=== PATIENT | female | born 1940 | race Caucasian/White ===

== ENCOUNTER → 2017-08-06 08:58 | Outpatient (CLI) | payer MEDICARE, BC, SELFPAY ==
--- NOTE | 2017-08-06 | DI.US.S_ITS ---
PROCEDURE: US CAROTID DOPPLER BI INDICATIONS: BILATERAL CAROTID ARTERY DISEASE TECHNIQUE: Color and pulse Doppler interrogation was performed of both carotid systems, with image documentation and velocity measurements. COMPARISON: [facility], , CAROTID ARTERY DOPPLER [facility], 08/22/2016, 10:36. FINDINGS: Stenosis calculations are based on SRU (Society of Radiologists in Ultrasound) criteria. Right side: Brachial blood pressure: 161/64 mm Hg. Common carotid artery peak systolic velocity: 87 cm/sec. Internal carotid artery peak systolic velocity: 202 cm/sec. Internal carotid artery end diastolic velocity: 40 cm/sec. External carotid artery peak systolic velocity: 202 cm/sec. ICA/CCA peak systolic ratio: 2.31. Pereira scale imaging description: The dense atheromatous plaque is present at the carotid bifurcation. Percent internal carotid artery stenosis: 50-69% stenosis. Vertebral artery: Flow direction is antegrade. Left side: Brachial blood pressure: Not obtained Common carotid artery peak systolic velocity: 89 cm/sec. Internal carotid artery peak systolic velocity: 132 cm/sec. Internal carotid artery end diastolic velocity: 31 cm/sec. External carotid artery peak systolic velocity: 407 cm/sec. ICA/CCA peak systolic ratio: 1.48. Pereira scale imaging description: Dense atheromatous plaque is present at the carotid bifurcation. Percent internal carotid artery stenosis: 50-69% stenosis. Vertebral artery: Flow direction is antegrade. IMPRESSION: 1. 50-69% stenosis of the bilateral internal carotid arteries. These findings are similar to the study dated 08/22/16. 2. Increased velocity within the left external carotid artery suggesting high-grade stenosis. Dictated by: Asia Bruce M.D. on 08/06/2017 at 10:39 Approved by: Asia Bruce M.D. on 08/06/2017 at 10:41
== END ==
PROVIDERS: PCP Family Medicine; Visit Provider Internal Medicine Cardiovascular Disease
DX: I65.23 Occlusion and stenosis of bilateral carotid arteries (principal)
CPT/HCPCS: 93880

== ENCOUNTER → 2017-12-10 10:45 | Outpatient (CLI) | payer MEDICARE, BC, SELFPAY ==
--- NOTE | 2017-12-10 | DI.MG.S_ITS ---
BILATERAL DIGITAL SCREENING MAMMOGRAM 3D/2D WITH CAD POST LUMPECTOMY: 12/10/2017 CLINICAL: Routine screening. Family history of breast cancer. Personal history of breast cancer. Comparison is made to exams dated: 11/27/2016 mammogram, 11/25/2015 mammogram, and 11/23/2014 mammogram - [facility]. The tissue of both breasts is heterogeneously dense. This may lower the sensitivity of mammography. Current study was also evaluated with a Computer Aided Detection (CAD) system. There are a grouped calcifications in the right breast at 6 o'clock posterior depth. No other significant masses, calcifications, or other findings are seen in either breast. IMPRESSION: INCOMPLETE: NEEDS ADDITIONAL IMAGING EVALUATION The grouped calcifications in the right breast are indeterminate. Spot magnification views are recommended. This exam was interpreted at Station ID: [id number]. NOTE: For mammograms, a report in lay terms will be sent to the patient. Approximately 15% of breast malignancies will not be visualized mammographically. In the management of a palpable breast mass, a negative mammogram must not discourage biopsy of a clinically suspicious lesion. Electronically Signed By: Asia westfall/pati:12/10/2017 12:09:32 letter sent: Additional Imaging Needed ACR BI-RADS Category 0: Incomplete 3340F
== END ==
PROVIDERS: PCP Family Medicine; Visit Provider Family Medicine
DX: Z12.31 Encounter for screening mammogram for malignant neoplasm of breast (principal); Z85.3 Personal history of malignant neoplasm of breast; Z80.3 Family history of malignant neoplasm of breast
CPT/HCPCS: 77063; 77067

== ENCOUNTER → 2018-01-07 12:22 | Outpatient (CLI) | payer MEDICARE, BC, SELFPAY ==
--- NOTE | 2018-01-07 | DI.MG.S_ITS ---
UNILATERAL RIGHT DIGITAL DIAGNOSTIC MAMMOGRAM 3D/2D WITH ADDITIONAL VIEWS: 01/07/2018 CLINICAL: Additional evaluation requested from prior study. Comparison is made to exams dated: 12/10/2017 mammogram, 11/27/2016 mammogram, and 11/25/2015 mammogram - [facility]. The tissue of right breast is heterogeneously dense. This may lower the sensitivity of mammography. There are grouped amorphous calcifications in the right breast at 6 o'clock posterior depth which appear stable compared to prior studies on additional magnification views. These are not significantly changed. No other significant masses or calcifications are seen in the breast. IMPRESSION: There is no mammographic evidence of malignancy. A 1 year screening mammogram is recommended. This exam was interpreted at Station ID: [id number]. NOTE: For mammograms, a report in lay terms will be sent to the patient. Approximately 15% of breast malignancies will not be visualized mammographically. In the management of a palpable breast mass, a negative mammogram must not discourage biopsy of a clinically suspicious lesion. Electronically Signed By: Wale beckford/:01/07/2018 13:32:22 letter sent: Normal Exam ACR BI-RADS Category 2: Benign Finding(s) 3342F
== END ==
PROVIDERS: PCP Family Medicine; Visit Provider Family Medicine
DX: R92.8 Other abnormal and inconclusive findings on diagnostic imaging of breast (principal)
CPT/HCPCS: 77065; G0279

== ENCOUNTER → 2018-07-15 09:52 | Outpatient (CLI) | payer MEDICARE, BC, SELFPAY ==
--- NOTE | 2018-07-15 | DI.US.S_ITS ---
PROCEDURE: US CAROTID DOPPLER BI INDICATIONS: ESSENTIAL HYPERTENSION TECHNIQUE: Color and pulse Doppler interrogation was performed of both carotid systems, with image documentation and velocity measurements. COMPARISON: [facility], [place], US CAROTID DOPPLER BI, 08/06/2017, 9:36. FINDINGS: Stenosis calculations are based on SRU (Society of Radiologists in Ultrasound) criteria. Right side: Brachial blood pressure: 152/69 mm Hg. Common carotid artery peak systolic velocity: 65 cm/sec. Internal carotid artery peak systolic velocity: 319 cm/sec. Internal carotid artery end diastolic velocity: 69 cm/sec. External carotid artery peak systolic velocity: 242 cm/sec. ICA/CCA peak systolic ratio: 4.89. Pereira scale imaging description: Densely calcified plaques at the origin of the internal carotid artery Percent internal carotid artery stenosis: 70% stenosis to near occlusion and increased. Vertebral artery: Flow direction is antegrade. Left side: Brachial blood pressure: Not available. Common carotid artery peak systolic velocity: 86 cm/sec. Internal carotid artery peak systolic velocity: 137 cm/sec. Internal carotid artery end diastolic velocity: 31 cm/sec. External carotid artery peak systolic velocity: 251 cm/sec. ICA/CCA peak systolic ratio: 1.95. Pereira scale imaging description: Calcified plaques at the bifurcation Percent internal carotid artery stenosis: 50-69% and unchanged. Vertebral artery: Flow direction is antegrade. IMPRESSION: 1. 70% stenosis to near occlusion of the left internal carotid artery, increased since the last exam. 2. 50-69% right internal carotid stenosis, unchanged. Dictated by: Rhiannon Meade M.D. on 07/15/2018 at 17:13 Approved by: Rhiannon Meade M.D. on 07/15/2018 at 17:17
== END ==
PROVIDERS: PCP Family Medicine; Visit Provider Internal Medicine Cardiovascular Disease
DX: I65.23 Occlusion and stenosis of bilateral carotid arteries (principal); I10 Essential (primary) hypertension
CPT/HCPCS: 93880

== ENCOUNTER → 2018-12-11 11:41 | Outpatient (CLI) | payer MEDICARE, BC, SELFPAY ==
--- NOTE | 2018-12-11 | DI.MG.S_ITS ---
BILATERAL DIGITAL SCREENING MAMMOGRAM 3D/2D WITH CAD POST LUMPECTOMY: 12/11/2018 CLINICAL: Routine screening. Personal history of breast cancer. Family history of breast cancer. Comparison is made to exams dated: 01/07/2018 mammogram, 12/10/2017 mammogram, 11/27/2016 mammogram, 11/25/2015 mammogram, and 11/23/2014 mammogram - [facility]. The tissue of both breasts is heterogeneously dense. This may lower the sensitivity of mammography. Current study was also evaluated with a Computer Aided Detection (CAD) system. There are benign vascular calcifications in both breasts. There also are benign post operative findings in the left breast. There is a mole marker on the right breast. No significant masses, calcifications, or other findings are seen in either breast. There has been no significant interval change. IMPRESSION: There is no mammographic evidence of malignancy. A 1 year screening mammogram is recommended. This exam was interpreted at Station ID: [id number]. NOTE: For mammograms, a report in lay terms will be sent to the patient. Approximately 15% of breast malignancies will not be visualized mammographically. In the management of a palpable breast mass, a negative mammogram must not discourage biopsy of a clinically suspicious lesion. Electronically Signed By: Danish jacobo/pati:12/14/2018 20:05:32 letter sent: Normal Exam ACR BI-RADS Category 2: Benign Finding(s) 3342F
== END ==
PROVIDERS: PCP Family Medicine; Visit Provider Family Medicine
DX: Z12.31 Encounter for screening mammogram for malignant neoplasm of breast (principal); Z85.3 Personal history of malignant neoplasm of breast; Z80.3 Family history of malignant neoplasm of breast
CPT/HCPCS: 77063; 77067

== ENCOUNTER → 2019-09-23 13:39 | Outpatient (CLI) | payer MEDICARE, BC, SELFPAY ==
--- NOTE | 2019-09-23 | DI.US.S_ITS ---
PROCEDURE: US CAROTID DOPPLER BI INDICATIONS: STENOSIS TECHNIQUE: Color and pulse Doppler interrogation was performed of both carotid systems, with image documentation and velocity measurements. COMPARISON: [facility], CAROTID ARTERY DOPPLER BILAT, 08/22/2016, 10:36. [facility], CAROTID ARTERY DOPPLER BILAT, 12/06/2015, 8:43. [facility], , CAROTID ARTERY DOPPLER BILAT, 12/13/2014, 10:38. [facility], , CAROTID ARTERY DOPPLER BILAT, 06/23/2014, 8:38. [facility], , US CAROTID DOPPLER BI, 07/15/2018, 10:33. [facility], US CAROTID DOPPLER BI, 08/06/2017, 9:36. FINDINGS: Stenosis calculations are based on SRU (Society of Radiologists in Ultrasound) criteria. Right side: Brachial blood pressure: 153/62 mm Hg. Common carotid artery peak systolic velocity: 92 cm/sec (prior 87 cm/s). Internal carotid artery peak systolic velocity: 302 cm/sec (prior 200 to cm/s). Internal carotid artery end diastolic velocity: 88 cm/sec (prior 40 cm/s). External carotid artery peak systolic velocity: 206 cm/sec (prior 202 cm/s). ICA/CCA peak systolic ratio: 3.3 (prior 2.3). Pereira scale imaging description: Moderate atherosclerotic changes are seen. Percent internal carotid artery stenosis: Greater than 70% Vertebral artery: Flow direction is antegrade. Left side: Brachial blood pressure: 123/53 mm Hg. Common carotid artery peak systolic velocity: 103 cm/sec (prior 87 cm/s). Internal carotid artery peak systolic velocity: 107 cm/sec (prior 137 cm/s). Internal carotid artery end diastolic velocity: 29 cm/sec (prior 31 cm/s). External carotid artery peak systolic velocity: 263 cm/sec (prior 251 cm/s). ICA/CCA peak systolic ratio: 1 (prior 1.59). Pereira scale imaging description: Atherosclerotic changes are seen, including shadowing calcification. Percent internal carotid artery stenosis: Less than 50% by velocity criteria Vertebral artery: Flow direction is antegrade. IMPRESSION: There is a greater than 70% stenosis seen involving the right proximal internal carotid artery, which has progressed compared to the prior ultrasound. A vascular surgery consultation is recommended. Less than 50% stenosis involving the left proximal internal carotid artery. By velocity criteria, there are greater than 50% stenoses involving both proximal external carotid arteries. Dictated by: Harry Mera M.D. on 09/23/2019 at 15:28 Approved by: Harry Mera M.D. on 09/23/2019 at 15:31
== END ==
PROVIDERS: PCP Family Medicine; Referring Provider Family Medicine; Visit Provider Family Medicine
DX: I65.23 Occlusion and stenosis of bilateral carotid arteries (principal); M85.851 Other specified disorders of bone density and structure, right thigh; E07.9 Disorder of thyroid, unspecified; E11.9 Type 2 diabetes mellitus without complications; R29.890 Loss of height; Z85.3 Personal history of malignant neoplasm of breast
CPT/HCPCS: 77080; 93880

== ENCOUNTER → 2019-12-17 09:55 | Outpatient (CLI) | payer MEDICARE, BC, SELFPAY ==
--- NOTE | 2019-12-17 | DI.MG.S_ITS ---
BILATERAL DIGITAL SCREENING MAMMOGRAM 3D/2D WITH CAD: 12/17/2019 CLINICAL: Routine screening. Personal history of left breast cancer. Family history of breast cancer. Comparison is made to exams dated: 12/11/2018 mammogram, 12/10/2017 mammogram, 11/27/2016 mammogram, 11/25/2015 mammogram, and 11/23/2014 mammogram - [facility]. The tissue of both breasts is heterogeneously dense. This may lower the sensitivity of mammography. Current study was also evaluated with a Computer Aided Detection (CAD) system. There are benign vascular calcifications in both breasts. There also are benign post operative findings in the left breast. No significant masses, calcifications, or other findings are seen in either breast. There has been no significant interval change. IMPRESSION: BENIGN There is no mammographic evidence of malignancy. A 1 year screening mammogram is recommended. This exam was interpreted at Station ID: [id number]. NOTE: For mammograms, a report in lay terms will be sent to the patient. Approximately 15% of breast malignancies will not be visualized mammographically. In the management of a palpable breast mass, a negative mammogram must not discourage biopsy of a clinically suspicious lesion. Electronically Signed By: Roverto pelaez/pati:12/17/2019 13:07:39 letter sent: Normal Exam ACR BI-RADS Category 2: Benign Finding(s) 3342F
== END ==
PROVIDERS: PCP Family Medicine; Referring Provider Family Medicine; Visit Provider Family Medicine
DX: Z12.31 Encounter for screening mammogram for malignant neoplasm of breast (principal); Z85.3 Personal history of malignant neoplasm of breast; Z80.3 Family history of malignant neoplasm of breast
CPT/HCPCS: 77063; 77067

== ENCOUNTER → 2020-09-27 10:17 | Outpatient (CLI) | payer MEDICARE, BC, SELFPAY ==
--- NOTE | 2020-09-27 | DI.US.S_ITS ---
PROCEDURE: US CAROTID DOPPLER BI INDICATIONS: CAROTID ARTERY DISEASE TECHNIQUE: Color and pulse Doppler interrogation was performed of both carotid systems, with image documentation and velocity measurements. COMPARISON: [facility], , US CAROTID DOPPLER BI, 09/23/2019, 14:02. FINDINGS: Stenosis calculations are based on SRU (Society of Radiologists in Ultrasound) criteria. Right side: Brachial blood pressure: 151/56 mm Hg. Common carotid artery peak systolic velocity: 81 cm/sec. Internal carotid artery peak systolic velocity: 283 cm/sec, previously 302 cm/second. Internal carotid artery end diastolic velocity: 66 cm/sec. External carotid artery peak systolic velocity: 247 cm/sec, previously 206 cm/second. ICA/CCA peak systolic ratio: 3.5 prior study is 3.3. Pereira scale imaging description: Moderate to severe atherosclerotic calcifications involving proximal right internal carotid artery is seen. Percent internal carotid artery stenosis: Greater than 70%. Vertebral artery: Flow direction is antegrade. Left side: Brachial blood pressure: 158/66 mm Hg. Common carotid artery peak systolic velocity: 90 cm/sec. Internal carotid artery peak systolic velocity: 172 cm/sec, previously 107 cm/second. Internal carotid artery end diastolic velocity: 33 cm/sec. External carotid artery peak systolic velocity: 258 cm/sec, previously 263 cm/second. ICA/CCA peak systolic ratio: 1.9, previously 1.0. Pereira scale imaging description: Mild atherosclerotic calcifications are noted in proximal left internal carotid artery. Percent internal carotid artery stenosis: 50-69%. Vertebral artery: Flow direction is antegrade. IMPRESSION: 1. Greater than 70% stenosis involving right proximal internal carotid artery not significantly changed from previous study. 2. Now 50-60% stenosis involving proximal left internal carotid artery compared to less than 50% stenosis on previous study. Dictated by: Chester Tena M.D. on 09/27/2020 at 12:21 Approved by: Chester Tena M.D. on 09/27/2020 at 12:26
== END ==
PROVIDERS: PCP Family Medicine; Referring Provider Internal Medicine Cardiovascular Disease; Visit Provider Internal Medicine Cardiovascular Disease
DX: I65.23 Occlusion and stenosis of bilateral carotid arteries (principal)
CPT/HCPCS: 93880

== ENCOUNTER → 2020-12-17 12:28 | Outpatient (CLI) | payer MEDICARE, BC, SELFPAY ==
--- NOTE | 2020-12-17 | DI.MG.S_ITS ---
BILATERAL DIGITAL SCREENING MAMMOGRAM 3D/2D WITH CAD: 12/17/2020 CLINICAL: Routine screening. Personal history of left breast cancer. Family history of breast cancer. Comparison is made to exams dated: 12/17/2019 mammogram, 12/11/2018 mammogram, and 12/10/2017 mammogram - [facility]. The tissue of both breasts is heterogeneously dense. This may lower the sensitivity of mammography. Current study was also evaluated with a Computer Aided Detection (CAD) system. There are benign vascular calcifications in both breasts. There also are benign post operative findings in the left breast. No significant masses, calcifications, or other findings are seen in either breast. There has been no significant interval change. IMPRESSION: BENIGN There is no mammographic evidence of malignancy. A 1 year screening mammogram is recommended. This exam was interpreted at Station ID: [id number]. NOTE: For mammograms, a report in lay terms will be sent to the patient. Approximately 15% of breast malignancies will not be visualized mammographically. In the management of a palpable breast mass, a negative mammogram must not discourage biopsy of a clinically suspicious lesion. Electronically Signed By: Wale beckford/pati:12/19/2020 09:18:36 letter sent: Normal Exam ACR BI-RADS Category 2: Benign Finding(s) 3342F
== END ==
PROVIDERS: PCP Family Medicine; Referring Provider Family Medicine; Visit Provider Family Medicine
DX: Z12.31 Encounter for screening mammogram for malignant neoplasm of breast (principal); Z85.3 Personal history of malignant neoplasm of breast; Z80.3 Family history of malignant neoplasm of breast
CPT/HCPCS: 77063; 77067

== ENCOUNTER → 2022-01-25 10:36 | Outpatient (CLI) | payer MEDICARE, BC, SELFPAY ==
--- NOTE | 2022-01-25 | DI.MG.S_ITS ---
BILATERAL DIGITAL SCREENING MAMMOGRAM 3D/2D WITH CAD: 01/25/2022 CLINICAL: Routine screening. Personal history of left breast cancer. Family history of breast cancer. Comparison is made to exams dated: 12/17/2020 mammogram, 12/17/2019 mammogram, and 12/11/2018 mammogram - [facility]. Both breasts are heterogeneously dense, which may obscure small masses (category c / 51-75% glandular tissue). Current study was also evaluated with a Computer Aided Detection (CAD) system. There are benign vascular calcifications in both breasts. There also are benign post operative findings in the left breast. No significant masses, calcifications, or other findings are seen in either breast. There has been no significant interval change. IMPRESSION: BENIGN There is no mammographic evidence of malignancy. A 1 year screening mammogram is recommended. This exam was interpreted at Station ID: [id number]. NOTE: For mammograms, a report in lay terms will be sent to the patient. Approximately 15% of breast malignancies will not be visualized mammographically. In the management of a palpable breast mass, a negative mammogram must not discourage biopsy of a clinically suspicious lesion. Electronically Signed By: Dewey nobles/pati:01/25/2022 12:07:04 copy to: [facility] letter sent: Normal Exam ACR BI-RADS Category 2: Benign Finding(s) 3342F
== END ==
PROVIDERS: PCP Family Medicine; Referring Provider Family Medicine; Visit Provider Family Medicine
DX: Z12.31 Encounter for screening mammogram for malignant neoplasm of breast (principal); Z85.3 Personal history of malignant neoplasm of breast; Z80.3 Family history of malignant neoplasm of breast
CPT/HCPCS: 77063; 77067

== ENCOUNTER → 2022-06-13 12:00 | Outpatient (CLI) | payer MEDICARE, BC, SELFPAY ==
--- NOTE | 2022-06-13 12:04 | DI.US.S_ITS ---
PROCEDURE: US CAROTID DOPPLER BI INDICATIONS: STENOSIS TECHNIQUE: Color and pulse Doppler interrogation was performed of both carotid systems, with image documentation and velocity measurements. COMPARISON: [facility], , US CAROTID DOPPLER BI, 09/27/2020, 9:31. FINDINGS: Stenosis calculations are based on SRU (Society of Radiologists in Ultrasound) criteria. Right side: Brachial blood pressure: 143/72 mm Hg. Common carotid artery peak systolic velocity: 86 cm/sec. Internal carotid artery peak systolic velocity: 267 cm/sec. Internal carotid artery end diastolic velocity: 72 cm/sec. External carotid artery peak systolic velocity: 234 cm/sec. ICA/CCA peak systolic ratio: 3.1 . Pereira scale imaging description: Moderate plaque at the bifurcation Percent internal carotid artery stenosis: Greater than 70% . Vertebral artery: Flow direction is antegrade. Left side: Brachial blood pressure: 149/65 mm Hg. Common carotid artery peak systolic velocity: 70 cm/sec. Internal carotid artery peak systolic velocity: 140 cm/sec. Internal carotid artery end diastolic velocity: 32 cm/sec. External carotid artery peak systolic velocity: 440 cm/sec. ICA/CCA peak systolic ratio: 2 0.0 . Pereira scale imaging description: Moderate plaque at the bifurcation Percent internal carotid artery stenosis: 50-69% stenosis . Vertebral artery: Flow direction is antegrade. IMPRESSION: 50-69% stenosis of left internal carotid artery stable. Greater than 70% stenosis of the right internal carotid artery. Dictated by: Rebeca Ambrose M.D. on 06/13/2022 at 19:51 Approved by: Rebeca Ambrose M.D. on 06/13/2022 at 19:53
== END ==
PROVIDERS: PCP Family Medicine; Referring Provider Internal Medicine Cardiovascular Disease; Visit Provider Internal Medicine Cardiovascular Disease
DX: I65.23 Occlusion and stenosis of bilateral carotid arteries (principal); I35.0 Nonrheumatic aortic (valve) stenosis
CPT/HCPCS: 93880

== ENCOUNTER → 2023-10-17 08:29 | Outpatient (CLI) | payer MEDICARE, BC, SELFPAY ==
--- NOTE | 2023-10-17 08:31 | DI.MRI.S_ITS ---
BREAST MRI OF BOTH BREASTS- POST LUMPECTOMY: 10/17/2023 CLINICAL: Left breast Cancer. Comparison is made to exams dated: 01/25/2022 mammogram, 12/17/2020 mammogram, and 12/17/2019 mammogram - [facility]. PROCEDURE: MR BREAST BI WO/W CON INDICATIONS: BREAST CANCER TECHNIQUE: The patient was placed prone in a dedicated breast imaging coil. Precontrast axial STIR and 3D FLASH without fat saturation sequences were obtained. Both before and after bolus injection of contrast, sequential 1-minute axial 3D FLASH with fat saturation sequences for 3 time points, with subtraction images and maximum intensity projections (MIP's) generated. Delayed sagittal FLASH images with fat saturation were also obtained. Computer-aided detection, including computer algorithm analysis of MRI image data for lesion detection and characterization, pharmacokinetic analysis, with further physician review for interpretation, was performed. FINDINGS: Image quality: Diagnostic. The breasts are heterogeneously dense. There is mild background parenchymal enhancement. Right breast: No suspicious mass, non-mass enhancement, or focus. Enhancing 7 mm mass in the right axillary tail is favored to represent an intramammary lymph node, fatty hilum is present. Left breast: Postsurgical changes. There is some skin irregularity, without discrete measurable nodule. No suspicious mass, non-mass enhancement, or focus identified. Miscellaneous: Heart size is at the upper limit of normal, partially seen. No pathologic lymph nodes by size criteria or morphologic characteristics in the axilla. The upper abdomen partially visualized is unremarkable. IMPRESSION: BENIGN Postsurgical changes of the left breast. No suspicious mass or non-mass enhancement in either breast. No lymphadenopathy by size criteria or morphologic characteristics within the field of view. Patient is due for screening mammography unless obtained recently elsewhere. Consider continued annual MRI screening. BIRADS 2 COMMENT: The imaging literature indicates that a negative contrast breast MRI examination has a high sensitivity and a moderate specificity for detecting and excluding invasive carcinomas to a detection threshold of 3-5 mm; nonetheless, appropriate clinical and mammographic follow-up are recommended. MRI is not sensitive for detecting DCIS (ductal carcinoma in situ) and may not detect large invasive neoplasms that show only minimal enhancement such as mucinous carcinoma. If there are suspicious calcifications or clinically worrisome palpable masses, then biopsy should still be considered. Invasive neoplasms can be hidden by co-existent and benign enhancement caused by mastitis, hormone therapy effects, radiation therapy, , and recent biopsy or surgery. False positive examinations can occur in a number of circumstances, including breasts that have recently been subject to invasive procedures and those that contain atypical ductal hyperplasia, hormonally stimulated glandular tissue, fat necrosis, or radial scars. This exam was interpreted at Station ID: [id number]. Electronically Signed By: Alvino reynaag/:10/17/2023 12:31:10 Entry: aa - 10/18/2023 12:10:56 copy to: [facility] ACR BI-RADS Category 2: Benign Finding(s) 3342F
== END ==
PROVIDERS: PCP Family Medicine; Referring Provider Family Medicine; Visit Provider Family Medicine
DX: C50.912 Malignant neoplasm of unspecified site of left female breast (principal); R92.333 Mammographic heterogeneous density, bilateral breasts
CPT/HCPCS: 77049; A9579